=== PATIENT | male | born 1965 | race African-American/Black ===

== ENCOUNTER → 2016-05-08 | Outpatient (CLI) | payer BC ==
[~2016-05-08] MED LIST: AFRIN,GENASAL D15 ML NS; ALEVE220 MG PO; ASPIRIN EC325 MG PO; CELEBREX200 MG PO; Colace PO; Coumadin Protocol PO; Coumadin,Jantoven PO; Dilaudid PO; ENDOCET 5-3251 EACH PO; Feosol PO; Flexeril PO; Levaquin PO; Lovenox SC; PHENTERMINE HCL30 MG PO; Percocet 5/325,Endoc PO; SENOKOT S,PE1 TABLET PO; Senokot S,Pericolace PO; Tylenol Regular Stre PO; VIAGRA100 MG PO; Vicodin,Norco 5/325 PO
== END | disposition home or self-care (01) ==
LOC: NUC 09:29
DX: T84.498A Other mechanical complication of other internal orthopedic devices, implants and grafts, initial encounter (principal); Z96.642 Presence of left artificial hip joint
CPT/HCPCS: 78315; A9503